=== PATIENT | female | born 1995 | race Caucasian/White ===

== ENCOUNTER 2018-12-25 00:44 | Emergency (ER) | payer OTHER ==
[~2018-12-25] VITALS: Ht 170.2 cm; Wt 74.0 kg
[~2018-12-25 00:44] MED LIST: IBUP800T48 PO
[2018-12-25 00:50] VITALS: Ht 170.2 cm; Wt 74.0 kg
[2018-12-25] MEDS ORDERED: KETOROLAC 30 MG INJ IM STA (02:41)
[2018-12-25 04:18] VITALS: BP 130/76; PULSE 73; RESP 18
== END 2018-12-25 04:19 | disposition home or self-care (01) ==
LOC: FTE 00:44
DX: S93.401A Sprain of unspecified ligament of right ankle, initial encounter (principal); X50.1XXA Overexertion from prolonged static or awkward postures, initial encounter; Y92.9 Unspecified place or not applicable
CPT/HCPCS: 73610; 81025; 96372; J1885; Z7502